=== PATIENT | female | born 1985 | race Caucasian/White ===

== ENCOUNTER → 2016-06-23 | Outpatient (CLI) | payer OTHER ==
[~2016-06-23] MED LIST: OMEP20CA59 PO
--- NOTE | 2016-06-23 18:48 | DIAGNOSTIC IMAGING REPORT ---
RIGHT KNEE MRI HISTORY: KNEE PAIN Right COMPARISON STUDY: Right knee MRI 09/18/2014. TECHNIQUE: Multiplanar multisequence MRI of the right knee was performed according to standard department protocol without the use of contrast. FINDINGS: Menisci: Truncated appearance to the body and anterior horn of the medial meniscus. The horizontal tear on the prior study is no longer visualized. Therefore, this could be due to prior partial meniscectomy/postoperative change. The lateral meniscus is intact. Ligaments: The anterior and posterior cruciate ligaments are intact. The medial and lateral collateral ligaments are normal in appearance. Extensor mechanism: The quadriceps tendon and patellar ligament are intact. Articular cartilage and bone: The articular cartilage is intact, and normal marrow signal intensity is seen throughout the imaged osseous structures. Joint effusion: None. Soft tissues: Intact. IMPRESSION: Truncated appearance to the body and anterior horn of the medial meniscus. The horizontal tear on the prior study is no longer visualized. Therefore, this could be due to prior partial meniscectomy/postoperative change. Otherwise, no significant abnormality within the right knee. Electronically signed by: Cheikh Mondragon M.D. 06/23/2016 6:46 PM Dictated Date/Time: 06/23/2016 6:42 PM
== END | disposition home or self-care (01) ==
LOC: C.MRI 17:23
PROVIDERS: ATTEND Orthopaedic Surgery Sports Medicine
DX: S83.221A Peripheral tear of medial meniscus, current injury, right knee, initial encounter (principal); X58.XXXA Exposure to other specified factors, initial encounter